=== PATIENT | male | born 1935 | race African-American/Black ===

== ENCOUNTER 2022-12-17 19:16 | Inpatient (IN) | payer OTHER ==
[2022-12-17] MEDS ORDERED: SODIUM CHLORIDE 2,000 ML IV STA (19:37)
[2022-12-17 20:07] LABS: VENOUS BASE EXCESS -3.8 mmol/L (-2-2); VENOUS O2 SATURATION 68.8 % (70-80); VENOUS PH 7.349 (7.310-7.410)
[2022-12-17] MEDS ORDERED: PIPERACILLIN/TAZOB 3.375 GM 3.375 GM in DEXTROSE 5%-WATER - 50 ML IVPB ONE (20:07)
[2022-12-17] MEDS ORDERED: VANCOMYCIN 1,000 MG in DEXTROSE 5%-WATER - 250 ML IVPB ONE (20:07)
[2022-12-17] MEDS ORDERED: VANCOMYCIN 1 GRAM (PRE-DOCKED) 1,000 MG/250 ML BAG IVPB ONE (20:14)
[2022-12-17] MEDS ORDERED: PIPERACILLIN/TAZOB 3.375 GM 3.375 GM/50 ML BAG IVPB ONE (20:15)
[2022-12-17 20:41] LABS: POTASSIUM 4.7 mmol/L (3.5-5.1)
[2022-12-17 20:42] LABS: CALCIUM 8.5 mg/dL (8.5-10.1)
[2022-12-17 20:43] LABS: ALBUMIN 1.8 g/dl (3.4-5.0); BLOOD UREA NITROGEN 63.3 mg/dL (7-18)
[2022-12-17 20:47] LABS: BILIRUBIN,TOTAL 0.4 mg/dL (0.2-1); CREATININE 1.6 mg/dL (0.55-1.3); TOT PROT 7.3 g/dl (6.4-8.2)
[2022-12-17 20:47] LABS: BASO % 0.5 % (0-2.0); EOS % 0.9 % (0-4.5); HEMATOCRIT 24.1 % (35.4-49); HEMOGLOBIN 7.8 GM/dL (11.7-16.9); LYMPH % 3.3 % (8-40); MCH 26.6 pg (25.7-33.7); MCHC 32.3 g/dl (32.0-35.9); MEAN CELL VOLUME 82.5 fl (80-96); MEAN PLT VOLUME 6.9 fl (7.5-11.1); MONO % 8.6 % (3.8-10.2); NEUT % 86.7 % (42.8-82.8); PLATELET COUNT 443 10^3/uL (134-434); RBC 2.92 M/mm3 (4.00-5.60); RDW 18.1 % (11.9-15.9); WHITE BLOOD COUNT 17.4 K/mm3 (4.0-10.0)
[2022-12-17] MEDS ORDERED: ACETAMINOPHEN 1000 MG/100 ML BAG IVPB ONE (21:14)
[2022-12-17 21:21] LABS: LACTIC ACID 2.4 mmol/L (0.4-2.0)
[2022-12-17 21:21] LABS: INR 1.36 (0.83-1.09); PROTHROMBIN TIME (PATIENT) 15.7 SEC (9.7-13.0)
[2022-12-17] MEDS ORDERED: ACETAMINOPHEN INJECTION 100 ML IVPB ONE (21:30)
[2022-12-17] MEDS ORDERED: SODIUM CHLORIDE 1,000 ML IV STA ×2 (22:27→22:31)
[2022-12-17 23:20] LABS: EPI CELLS 1 /uL (0-25.1); HYALINE CASTS 2 /uL (0-3.1); PH,URINE 8.5 (5.0-8.0); URINE APPEARANCE CLOUDY; URINE BACTERIA 6938 /uL (0-1359); URINE BILIRUBIN NEGATIVE (NEGATIVE); URINE COLOR YELLOW; URINE GLUCOSE (UA) NEGATIVE (NEGATIVE); URINE KETONE NEGATIVE (NEGATIVE); URINE LEUK ESTERASE 3+ (NEGATIVE); URINE NITRITE NEGATIVE (NEGATIVE); URINE PROTEIN 1+ (NEGATIVE); URINE RBC 31 /uL (0-23.9); URINE WBC 723 /uL (0-25.8)
[2022-12-18 04:09] VITALS: BMI 18.6
[2022-12-18] MEDS: PIPERACILLIN/TAZOB 2.25 GM 2.25 GM in DEXTROSE 5%-WATER - 50 ML IVPB SCH ×4 (04:57→20:58)
[2022-12-18] MEDS ORDERED: HYDROmorphone HCL 2 MG TABLET PO SCH (06:00)
[2022-12-18] MEDS ORDERED: [UNRECOGNIZED DRUG - OTHER] PEG SCH (06:00)
[2022-12-18] MEDS ORDERED: morphine SULFATE 10 MG/5 ML UNIT-DOSE CUP PO SCH (06:00)
[2022-12-18] MEDS ORDERED: HYDROMORPHONE HCL PEG SCH (06:00)
[2022-12-18] MEDS ORDERED: HEPARIN NA (PORCINE) 5,000 UNITS/ML 1ML VIAL SQ SCH ×2 (06:00)
[2022-12-18] MEDS ORDERED: ACETAMINOPHEN 1000 MG/100 ML BAG IVPB PRN (07:16)
[2022-12-18] MEDS ORDERED: ACETAMINOPHEN 325 MG TABLET (FP) PO SCH (10:00)
[2022-12-18] MEDS ORDERED: ASPIRIN 81 MG CHEWABLE TABLETS PEG SCH (10:00)
[2022-12-18] MEDS: FOLIC ACID 1 MG TABLET (FP) PO SCH (10:47)
[2022-12-18] MEDS: ASCORBIC ACID 500 MG TABLET (FP) PO SCH ×2 (10:48→22:09)
[2022-12-18] MEDS: SENNOSIDES 8.6MG TABLET (FP) PO SCH ×2 (10:48→22:09)
[2022-12-18] MEDS: ZINC SULFATE 220 MG CAPSULE (FP) PO SCH (10:48)
[2022-12-18] MEDS: AMANTADINE HCL 100 MG TABLET PO SCH (10:48)
[2022-12-18] MEDS: CLOPIDOGREL BISULFATE 75 MG TABLET (FP) PO SCH (10:48)
[2022-12-18] MEDS: COLLAGENASE CLOSTRIDIUM HIST. 30 GRAMS TUBE TP SCH (10:48)
[2022-12-18 10:55] LABS: BASO % 0.6 % (0-2.0); HEMATOCRIT 22.9 % (35.4-49); HEMOGLOBIN 7.5 GM/dL (11.7-16.9); LYMPH % 4.4 % (8-40); MCH 26.8 pg (25.7-33.7); MCHC 32.6 g/dl (32.0-35.9); MEAN CELL VOLUME 82.2 fl (80-96); MEAN PLT VOLUME 7.2 fl (7.5-11.1); MONO % 6.9 % (3.8-10.2); NEUT % 85.1 % (42.8-82.8); PLATELET COUNT 413 10^3/uL (134-434); RBC 2.79 M/mm3 (4.00-5.60); WHITE BLOOD COUNT 19.2 K/mm3 (4.0-10.0)
[2022-12-18 11:19] LABS: POTASSIUM 4.1 mmol/L (3.5-5.1)
[2022-12-18 11:31] LABS: ALBUMIN 1.6 g/dl (3.4-5.0); BLOOD UREA NITROGEN 56.6 mg/dL (7-18); CALCIUM 7.7 mg/dL (8.5-10.1); MAGNESIUM 1.9 mg/dL (1.8-2.4)
[2022-12-18 11:34] LABS: CREATININE 1.3 mg/dL (0.55-1.3)
[2022-12-18 11:36] LABS: BILIRUBIN,TOTAL 0.7 mg/dL (0.2-1); TOT PROT 6.2 g/dl (6.4-8.2)
[2022-12-18 17:31] LABS: PHOSPHOROUS 3.8 mg/dL (2.5-4.9)
[2022-12-18] MEDS: TAMSULOSIN HCL 0.4 MG CAP PO SCH (22:09)
[2022-12-18] MEDS: DONEPEZIL HCL 5 MG TABLET (FP) PO SCH (22:09)
[2022-12-19] MEDS: PIPERACILLIN/TAZOB 2.25 GM 2.25 GM in DEXTROSE 5%-WATER - 50 ML IVPB SCH ×6 (03:03→20:25)
[2022-12-19 09:18] LABS: BASO % 0.8 % (0-2.0); HEMATOCRIT 20.4 % (35.4-49); MCH 27.1 pg (25.7-33.7); MCHC 33.4 g/dl (32.0-35.9); MEAN CELL VOLUME 81.3 fl (80-96); MONO % 8.6 % (3.8-10.2); NEUT % 76.6 % (42.8-82.8); PLATELET COUNT 412 10^3/uL (134-434); RBC 2.51 M/mm3 (4.00-5.60); RDW 18.5 % (11.9-15.9); WHITE BLOOD COUNT 12.8 K/mm3 (4.0-10.0)
[2022-12-19 09:29] LABS: HEMOGLOBIN 6.8 GM/dL (11.7-16.9)
[2022-12-19] MEDS: CLOPIDOGREL BISULFATE 75 MG TABLET (FP) PO SCH (09:54)
[2022-12-19] MEDS: FOLIC ACID 1 MG TABLET (FP) PO SCH (09:55)
[2022-12-19] MEDS: ZINC SULFATE 220 MG CAPSULE (FP) PO SCH (09:55)
[2022-12-19] MEDS: SENNOSIDES 8.6MG TABLET (FP) PO SCH ×2 (09:55→21:01)
[2022-12-19] MEDS: ASCORBIC ACID 500 MG TABLET (FP) PO SCH ×2 (09:55→21:01)
[2022-12-19 10:31] LABS: POTASSIUM 4.2 mmol/L (3.5-5.1)
[2022-12-19 10:33] LABS: BLOOD UREA NITROGEN 46.7 mg/dL (7-18)
[2022-12-19 10:34] LABS: ALBUMIN 1.6 g/dl (3.4-5.0); CALCIUM 7.9 mg/dL (8.5-10.1)
[2022-12-19 10:37] LABS: CREATININE 1.2 mg/dL (0.55-1.3); PHOSPHOROUS 3.8 mg/dL (2.5-4.9)
[2022-12-19 10:38] LABS: TOT PROT 6.5 g/dl (6.4-8.2)
[2022-12-19 10:39] LABS: BILIRUBIN,TOTAL 0.4 mg/dL (0.2-1)
[2022-12-19 10:40] LABS: N-TERMINAL BNP 5010.4 pg/ml (5-450)
[2022-12-19] MEDS: COLLAGENASE CLOSTRIDIUM HIST. 30 GRAMS TUBE TP SCH (11:57)
[2022-12-19 12:14] LABS: RETICULOCYTES 1.37 % (0.5-1.5)
[2022-12-19] MEDS: TAMSULOSIN HCL 0.4 MG CAP PO SCH (21:01)
[2022-12-19] MEDS: DONEPEZIL HCL 5 MG TABLET (FP) PO SCH (21:01)
[2022-12-20] MEDS: PIPERACILLIN/TAZOB 2.25 GM 2.25 GM in DEXTROSE 5%-WATER - 50 ML IVPB SCH ×4 (04:08→21:21)
[2022-12-20] MEDS: ASCORBIC ACID 500 MG TABLET (FP) PO SCH ×2 (10:18→21:21)
[2022-12-20] MEDS: CLOPIDOGREL BISULFATE 75 MG TABLET (FP) PO SCH (10:18)
[2022-12-20] MEDS: ZINC SULFATE 220 MG CAPSULE (FP) PO SCH (10:18)
[2022-12-20] MEDS: SENNOSIDES 8.6MG TABLET (FP) PO SCH ×2 (10:18→21:21)
[2022-12-20] MEDS: FOLIC ACID 1 MG TABLET (FP) PO SCH (10:18)
[2022-12-20] MEDS: AMANTADINE HCL 100 MG TABLET PO SCH (10:18)
[2022-12-20] MEDS: COLLAGENASE CLOSTRIDIUM HIST. 30 GRAMS TUBE TP SCH (10:19)
[2022-12-20 10:23] LABS: BASO % 1.2 % (0-2.0); EOS % 9.4 % (0-4.5); HEMATOCRIT 26.2 % (35.4-49); HEMOGLOBIN 8.8 GM/dL (11.7-16.9); MCH 27.8 pg (25.7-33.7); MCHC 33.6 g/dl (32.0-35.9); MEAN CELL VOLUME 82.7 fl (80-96); MONO % 10.6 % (3.8-10.2); NEUT % 67.8 % (42.8-82.8); PLATELET COUNT 439 10^3/uL (134-434); RBC 3.17 M/mm3 (4.00-5.60); RDW 17.6 % (11.9-15.9); WHITE BLOOD COUNT 9.5 K/mm3 (4.0-10.0)
[2022-12-20 10:51] LABS: POTASSIUM 4.1 mmol/L (3.5-5.1)
[2022-12-20 10:53] LABS: CALCIUM 8.3 mg/dL (8.5-10.1)
[2022-12-20 10:54] LABS: BLOOD UREA NITROGEN 39.3 mg/dL (7-18)
[2022-12-20 10:57] LABS: CREATININE 1.2 mg/dL (0.55-1.3); PHOSPHOROUS 3.9 mg/dL (2.5-4.9)
[2022-12-20] MEDS ORDERED: ACETAMINOPHEN 1000 MG/100 ML BAG IVPB ONE (19:30)
[2022-12-20] MEDS ORDERED: ACETAMINOPHEN 1000 MG/100 ML BAG IVPB PRN (19:35)
[2022-12-20] MEDS: DONEPEZIL HCL 5 MG TABLET (FP) PO SCH (21:21)
[2022-12-20] MEDS: TAMSULOSIN HCL 0.4 MG CAP PO SCH (21:21)
[2022-12-21] MEDS: PIPERACILLIN/TAZOB 2.25 GM 2.25 GM in DEXTROSE 5%-WATER - 50 ML IVPB SCH ×4 (02:06→20:38)
[2022-12-21 10:03] LABS: BASO % 1.3 % (0-2.0); EOS % 12.8 % (0-4.5); HEMATOCRIT 25.6 % (35.4-49); HEMOGLOBIN 8.4 GM/dL (11.7-16.9); LYMPH % 13.3 % (8-40); MCH 27.2 pg (25.7-33.7); MCHC 32.9 g/dl (32.0-35.9); MEAN CELL VOLUME 82.6 fl (80-96); MEAN PLT VOLUME 6.8 fl (7.5-11.1); MONO % 10.3 % (3.8-10.2); NEUT % 62.3 % (42.8-82.8); PLATELET COUNT 433 10^3/uL (134-434); RBC 3.11 M/mm3 (4.00-5.60); RDW 17.6 % (11.9-15.9); WHITE BLOOD COUNT 7.6 K/mm3 (4.0-10.0)
[2022-12-21 10:16] LABS: POTASSIUM 4.1 mmol/L (3.5-5.1)
[2022-12-21 10:17] LABS: CALCIUM 8.4 mg/dL (8.5-10.1)
[2022-12-21 10:18] LABS: BLOOD UREA NITROGEN 31.4 mg/dL (7-18); MAGNESIUM 1.8 mg/dL (1.8-2.4)
[2022-12-21 10:21] LABS: CREATININE 1.1 mg/dL (0.55-1.3); PHOSPHOROUS 3.3 mg/dL (2.5-4.9)
[2022-12-21] MEDS: CLOPIDOGREL BISULFATE 75 MG TABLET (FP) PO SCH (10:48)
[2022-12-21] MEDS: FOLIC ACID 1 MG TABLET (FP) PO SCH (10:48)
[2022-12-21] MEDS: ASCORBIC ACID 500 MG TABLET (FP) PO SCH ×2 (10:48→22:11)
[2022-12-21] MEDS: ZINC SULFATE 220 MG CAPSULE (FP) PO SCH (10:48)
[2022-12-21] MEDS: SENNOSIDES 8.6MG TABLET (FP) PO SCH (10:48)
[2022-12-21] MEDS: COLLAGENASE CLOSTRIDIUM HIST. 30 GRAMS TUBE TP SCH (12:15)
[2022-12-21] MEDS ORDERED: PIPERACILLIN/TAZOBACTAM 2.25 GM VIAL IVPB ONE ×2 (14:22→20:23)
[2022-12-21] MEDS: MULTIVIT-MINERALS ORAL LIQUID PO SCH (15:06)
[2022-12-21] MEDS: DONEPEZIL HCL 5 MG TABLET (FP) PO SCH (22:11)
[2022-12-21] MEDS: TAMSULOSIN HCL 0.4 MG CAP PO SCH (23:43)
[2022-12-22] MEDS: PIPERACILLIN/TAZOB 2.25 GM 2.25 GM in DEXTROSE 5%-WATER - 50 ML IVPB SCH ×4 (02:33→21:28)
[2022-12-22 09:31] LABS: HEMATOCRIT 25.6 % (35.4-49); HEMOGLOBIN 8.4 GM/dL (11.7-16.9); LYMPH % 14.7 % (8-40); MCH 27.4 pg (25.7-33.7); MCHC 32.8 g/dl (32.0-35.9); MEAN CELL VOLUME 83.4 fl (80-96); MEAN PLT VOLUME 6.7 fl (7.5-11.1); MONO % 10.5 % (3.8-10.2); NEUT % 62.8 % (42.8-82.8); PLATELET COUNT 405 10^3/uL (134-434); RBC 3.07 M/mm3 (4.00-5.60); RDW 17.3 % (11.9-15.9)
[2022-12-22 10:07] LABS: CALCIUM 8.2 mg/dL (8.5-10.1)
[2022-12-22 10:08] LABS: BLOOD UREA NITROGEN 25.6 mg/dL (7-18); MAGNESIUM 1.7 mg/dL (1.8-2.4)
[2022-12-22 10:11] LABS: PHOSPHOROUS 2.7 mg/dL (2.5-4.9)
[2022-12-22] MEDS: ASCORBIC ACID 500 MG TABLET (FP) PO SCH (10:25)
[2022-12-22] MEDS: MULTIVIT-MINERALS ORAL LIQUID PO SCH (10:25)
[2022-12-22] MEDS: AMANTADINE HCL 100 MG TABLET PO SCH (10:25)
[2022-12-22] MEDS: FOLIC ACID 1 MG TABLET (FP) PO SCH (10:25)
[2022-12-22] MEDS: ZINC SULFATE 220 MG CAPSULE (FP) PO SCH (10:25)
[2022-12-22] MEDS: CLOPIDOGREL BISULFATE 75 MG TABLET (FP) PO SCH (10:25)
[2022-12-22] MEDS: COLLAGENASE CLOSTRIDIUM HIST. 30 GRAMS TUBE TP SCH (10:26)
[2022-12-22] MEDS ORDERED: MAGNESIUM 2GM/50ML STERILE WATER IVPB IVPB ONE (17:18)
[2022-12-22] MEDS: DONEPEZIL HCL 5 MG TABLET (FP) GT SCH (21:28)
[2022-12-22] MEDS: ASCORBIC ACID 500 MG/5 ML UNIT DOSE CUP GT SCH (21:28)
[2022-12-23] MEDS: PIPERACILLIN/TAZOB 2.25 GM 2.25 GM in DEXTROSE 5%-WATER - 50 ML IVPB SCH ×3 (02:09→15:30)
[2022-12-23] MEDS: MULTIVIT-MINERALS ORAL LIQUID GT SCH (09:32)
[2022-12-23] MEDS: ASCORBIC ACID 500 MG/5 ML UNIT DOSE CUP GT SCH ×2 (09:32→21:17)
[2022-12-23] MEDS: CLOPIDOGREL BISULFATE 75 MG TABLET (FP) GT SCH (09:33)
[2022-12-23] MEDS: FOLIC ACID 1 MG TABLET (FP) GT SCH (09:33)
[2022-12-23] MEDS: ZINC SULFATE 220 MG CAPSULE (FP) GT SCH (09:33)
[2022-12-23] MEDS: DOXAZOSIN MESYLATE 1 MG TABLET GT SCH (09:33)
[2022-12-23] MEDS: COLLAGENASE CLOSTRIDIUM HIST. 30 GRAMS TUBE TP SCH (09:34)
[2022-12-23 10:10] LABS: HEMATOCRIT 27.1 % (35.4-49); HEMOGLOBIN 8.8 GM/dL (11.7-16.9); MCH 27.2 pg (25.7-33.7); MCHC 32.6 g/dl (32.0-35.9); MEAN CELL VOLUME 83.4 fl (80-96); MEAN PLT VOLUME 6.8 fl (7.5-11.1); PLATELET COUNT 379 10^3/uL (134-434); RBC 3.25 M/mm3 (4.00-5.60); RDW 17.4 % (11.9-15.9); WHITE BLOOD COUNT 7.8 K/mm3 (4.0-10.0)
[2022-12-23 10:11] LABS: POTASSIUM 3.9 mmol/L (3.5-5.1)
[2022-12-23 10:24] LABS: CALCIUM 8.4 mg/dL (8.5-10.1); MAGNESIUM 1.8 mg/dL (1.8-2.4)
[2022-12-23 10:25] LABS: BLOOD UREA NITROGEN 23.3 mg/dL (7-18)
[2022-12-23 10:28] LABS: CREATININE 1.1 mg/dL (0.55-1.3)
[2022-12-23 10:30] LABS: PHOSPHOROUS 2.7 mg/dL (2.5-4.9)
[2022-12-23] MEDS: HEPARIN NA (PORCINE) 5,000 UNITS/ML 1ML VIAL SQ SCH ×2 (15:30→21:17)
[2022-12-23] MEDS ORDERED: PIPERACILLIN/TAZOBACTAM 2.25 GM VIAL IVPB ONE (15:30)
[2022-12-23] MEDS: PIPERACILLIN/TAZOB 3.375 GM 3.375 GM in DEXTROSE 5%-WATER - 50 ML IVPB SCH (18:20)
[2022-12-23] MEDS: DONEPEZIL HCL 5 MG TABLET (FP) GT SCH (21:17)
[2022-12-24] MEDS: PIPERACILLIN/TAZOB 3.375 GM 3.375 GM in DEXTROSE 5%-WATER - 50 ML IVPB SCH ×3 (02:22→18:48)
[2022-12-24] MEDS: HEPARIN NA (PORCINE) 5,000 UNITS/ML 1ML VIAL SQ SCH ×3 (06:58→22:54)
[2022-12-24 09:08] LABS: HEMATOCRIT 24.7 % (35.4-49); HEMOGLOBIN 8.3 GM/dL (11.7-16.9); MCH 28.1 pg (25.7-33.7); MCHC 33.8 g/dl (32.0-35.9); MEAN CELL VOLUME 83.1 fl (80-96); MEAN PLT VOLUME 7.2 fl (7.5-11.1); PLATELET COUNT 371 10^3/uL (134-434); RBC 2.97 M/mm3 (4.00-5.60); RDW 17.3 % (11.9-15.9); WHITE BLOOD COUNT 7.4 K/mm3 (4.0-10.0)
[2022-12-24 09:32] LABS: ALBUMIN 1.7 g/dl (3.4-5.0); BLOOD UREA NITROGEN 24.4 mg/dL (7-18); CALCIUM 8.2 mg/dL (8.5-10.1)
[2022-12-24 09:35] LABS: CREATININE 1.1 mg/dL (0.55-1.3)
[2022-12-24 09:36] LABS: BILIRUBIN,TOTAL 0.4 mg/dL (0.2-1)
[2022-12-24 09:38] LABS: TOT PROT 6.6 g/dl (6.4-8.2)
[2022-12-24] MEDS: ASCORBIC ACID 500 MG/5 ML UNIT DOSE CUP GT SCH ×2 (10:28→22:55)
[2022-12-24] MEDS: ZINC SULFATE 220 MG CAPSULE (FP) GT SCH (10:28)
[2022-12-24] MEDS: MULTIVIT-MINERALS ORAL LIQUID GT SCH (10:28)
[2022-12-24] MEDS: CLOPIDOGREL BISULFATE 75 MG TABLET (FP) GT SCH (10:28)
[2022-12-24] MEDS: DOXAZOSIN MESYLATE 1 MG TABLET GT SCH (10:28)
[2022-12-24] MEDS: FOLIC ACID 1 MG TABLET (FP) GT SCH (10:28)
[2022-12-24] MEDS: COLLAGENASE CLOSTRIDIUM HIST. 30 GRAMS TUBE TP SCH (10:29)
[2022-12-24] MEDS: AMANTADINE HCL 100MG/10 ML UNIT DOSE CUPS GT SCH (10:29)
[2022-12-24] MEDS: DONEPEZIL HCL 5 MG TABLET (FP) GT SCH (22:55)
[2022-12-25] MEDS: PIPERACILLIN/TAZOB 3.375 GM 3.375 GM in DEXTROSE 5%-WATER - 50 ML IVPB SCH ×3 (03:12→17:38)
[2022-12-25] MEDS: HEPARIN NA (PORCINE) 5,000 UNITS/ML 1ML VIAL SQ SCH ×3 (06:53→22:28)
[2022-12-25] MEDS: ZINC SULFATE 220 MG CAPSULE (FP) GT SCH (10:05)
[2022-12-25] MEDS: ASCORBIC ACID 500 MG/5 ML UNIT DOSE CUP GT SCH ×2 (10:05→22:27)
[2022-12-25] MEDS: FOLIC ACID 1 MG TABLET (FP) GT SCH (10:05)
[2022-12-25] MEDS: CLOPIDOGREL BISULFATE 75 MG TABLET (FP) GT SCH (10:05)
[2022-12-25] MEDS: DOXAZOSIN MESYLATE 1 MG TABLET GT SCH (10:06)
[2022-12-25] MEDS: MULTIVIT-MINERALS ORAL LIQUID GT SCH (10:06)
[2022-12-25] MEDS: COLLAGENASE CLOSTRIDIUM HIST. 30 GRAMS TUBE TP SCH (10:06)
[2022-12-25] MEDS: DONEPEZIL HCL 5 MG TABLET (FP) GT SCH (22:28)
[2022-12-26] MEDS: PIPERACILLIN/TAZOB 3.375 GM 3.375 GM in DEXTROSE 5%-WATER - 50 ML IVPB SCH ×3 (01:58→17:43)
[2022-12-26] MEDS: HEPARIN NA (PORCINE) 5,000 UNITS/ML 1ML VIAL SQ SCH ×3 (05:57→21:50)
[2022-12-26] MEDS: FOLIC ACID 1 MG TABLET (FP) GT SCH (09:30)
[2022-12-26] MEDS: MULTIVIT-MINERALS ORAL LIQUID GT SCH (09:30)
[2022-12-26] MEDS: ZINC SULFATE 220 MG CAPSULE (FP) GT SCH (09:30)
[2022-12-26] MEDS: ASCORBIC ACID 500 MG/5 ML UNIT DOSE CUP GT SCH ×2 (09:30→21:50)
[2022-12-26] MEDS: AMANTADINE HCL 100MG/10 ML UNIT DOSE CUPS GT SCH (09:30)
[2022-12-26] MEDS: DOXAZOSIN MESYLATE 1 MG TABLET GT SCH (09:30)
[2022-12-26] MEDS: CLOPIDOGREL BISULFATE 75 MG TABLET (FP) GT SCH (09:30)
[2022-12-26] MEDS: COLLAGENASE CLOSTRIDIUM HIST. 30 GRAMS TUBE TP SCH (09:31)
[2022-12-26 10:50] LABS: BASO % 0.6 % (0-2.0); EOS % 7.6 % (0-4.5); HEMATOCRIT 26.2 % (35.4-49); HEMOGLOBIN 9.1 GM/dL (11.7-16.9); LYMPH % 11.7 % (8-40); MCH 28.6 pg (25.7-33.7); MCHC 34.7 g/dl (32.0-35.9); MEAN CELL VOLUME 82.6 fl (80-96); MEAN PLT VOLUME 7.6 fl (7.5-11.1); MONO % 7.8 % (3.8-10.2); NEUT % 72.3 % (42.8-82.8); PLATELET COUNT 369 10^3/uL (134-434); RBC 3.18 M/mm3 (4.00-5.60); RDW 17.2 % (11.9-15.9); WHITE BLOOD COUNT 8.6 K/mm3 (4.0-10.0)
[2022-12-26 11:10] LABS: POTASSIUM 4.1 mmol/L (3.5-5.1)
[2022-12-26 11:13] LABS: ALBUMIN 1.8 g/dl (3.4-5.0); BLOOD UREA NITROGEN 24.7 mg/dL (7-18); CALCIUM 8.5 mg/dL (8.5-10.1); MAGNESIUM 1.7 mg/dL (1.8-2.4)
[2022-12-26 11:16] LABS: PHOSPHOROUS 2.7 mg/dL (2.5-4.9)
[2022-12-26 11:17] LABS: BILIRUBIN,TOTAL 0.5 mg/dL (0.2-1)
[2022-12-26 11:18] LABS: TOT PROT 6.9 g/dl (6.4-8.2)
[2022-12-26] MEDS ORDERED: MAGNESIUM SULF 50% (8.12 MEQ/2 ML-1 GM VIAL) IVPB ONE (12:13)
[2022-12-26] MEDS: DONEPEZIL HCL 5 MG TABLET (FP) GT SCH (21:50)
[2022-12-27] MEDS: PIPERACILLIN/TAZOB 3.375 GM 3.375 GM in DEXTROSE 5%-WATER - 50 ML IVPB SCH ×2 (01:25→10:36)
[2022-12-27] MEDS: HEPARIN NA (PORCINE) 5,000 UNITS/ML 1ML VIAL SQ SCH ×3 (06:34→21:23)
[2022-12-27 09:23] LABS: BASO % 0.8 % (0-2.0); EOS % 5.8 % (0-4.5); HEMATOCRIT 25.8 % (35.4-49); HEMOGLOBIN 8.5 GM/dL (11.7-16.9); LYMPH % 11.7 % (8-40); MCH 27.8 pg (25.7-33.7); MCHC 33.1 g/dl (32.0-35.9); MEAN CELL VOLUME 83.8 fl (80-96); MEAN PLT VOLUME 7.7 fl (7.5-11.1); MONO % 7.4 % (3.8-10.2); NEUT % 74.3 % (42.8-82.8); PLATELET COUNT 369 10^3/uL (134-434); RBC 3.08 M/mm3 (4.00-5.60); RDW 17.5 % (11.9-15.9); WHITE BLOOD COUNT 9.2 K/mm3 (4.0-10.0)
[2022-12-27 09:56] LABS: POTASSIUM 3.8 mmol/L (3.5-5.1)
[2022-12-27 10:20] LABS: ALBUMIN 1.6 g/dl (3.4-5.0); CALCIUM 8.3 mg/dL (8.5-10.1)
[2022-12-27 10:21] LABS: BLOOD UREA NITROGEN 30.1 mg/dL (7-18)
[2022-12-27 10:23] LABS: PHOSPHOROUS 2.6 mg/dL (2.5-4.9)
[2022-12-27 10:24] LABS: CREATININE 1.1 mg/dL (0.55-1.3)
[2022-12-27 10:25] LABS: BILIRUBIN,TOTAL 0.4 mg/dL (0.2-1); TOT PROT 6.5 g/dl (6.4-8.2)
[2022-12-27] MEDS: ZINC SULFATE 220 MG CAPSULE (FP) GT SCH (10:37)
[2022-12-27] MEDS: DOXAZOSIN MESYLATE 1 MG TABLET GT SCH (10:37)
[2022-12-27] MEDS: MULTIVIT-MINERALS ORAL LIQUID GT SCH (10:37)
[2022-12-27] MEDS: CLOPIDOGREL BISULFATE 75 MG TABLET (FP) GT SCH (10:37)
[2022-12-27] MEDS: ASCORBIC ACID 500 MG/5 ML UNIT DOSE CUP GT SCH ×2 (10:37→21:23)
[2022-12-27] MEDS: FOLIC ACID 1 MG TABLET (FP) GT SCH (10:37)
[2022-12-27] MEDS: COLLAGENASE CLOSTRIDIUM HIST. 30 GRAMS TUBE TP SCH (14:33)
[2022-12-27] MEDS: DONEPEZIL HCL 5 MG TABLET (FP) GT SCH (21:23)
[2022-12-28] MEDS: HEPARIN NA (PORCINE) 5,000 UNITS/ML 1ML VIAL SQ SCH ×3 (05:18→22:10)
[2022-12-28] MEDS: COLLAGENASE CLOSTRIDIUM HIST. 30 GRAMS TUBE TP SCH (10:00)
[2022-12-28] MEDS: FOLIC ACID 1 MG TABLET (FP) GT SCH (10:13)
[2022-12-28] MEDS: DOXAZOSIN MESYLATE 1 MG TABLET GT SCH (10:13)
[2022-12-28] MEDS: MULTIVIT-MINERALS ORAL LIQUID GT SCH (10:13)
[2022-12-28] MEDS: ZINC SULFATE 220 MG CAPSULE (FP) GT SCH (10:13)
[2022-12-28] MEDS: ASCORBIC ACID 500 MG/5 ML UNIT DOSE CUP GT SCH ×2 (10:14→22:10)
[2022-12-28] MEDS: CLOPIDOGREL BISULFATE 75 MG TABLET (FP) GT SCH (10:14)
[2022-12-28] MEDS: AMANTADINE HCL 100MG/10 ML UNIT DOSE CUPS GT SCH (10:14)
[2022-12-28] MEDS ORDERED: guaiFENesin 200 MG/10 ML 10 ML UNIT-DOSE CUPS PO ONE (18:42)
[2022-12-28] MEDS: DONEPEZIL HCL 5 MG TABLET (FP) GT SCH (22:10)
[2022-12-29] MEDS: HEPARIN NA (PORCINE) 5,000 UNITS/ML 1ML VIAL SQ SCH ×3 (06:25→22:01)
[2022-12-29 08:41] LABS: HEMATOCRIT 25.2 % (35.4-49); HEMOGLOBIN 8.3 GM/dL (11.7-16.9); MCH 27.7 pg (25.7-33.7); MCHC 32.8 g/dl (32.0-35.9); MEAN CELL VOLUME 84.3 fl (80-96); MEAN PLT VOLUME 7.8 fl (7.5-11.1); PLATELET COUNT 406 10^3/uL (134-434); RBC 2.99 M/mm3 (4.00-5.60); RDW 17.6 % (11.9-15.9); WHITE BLOOD COUNT 7.7 K/mm3 (4.0-10.0)
[2022-12-29 09:33] LABS: ALBUMIN 1.7 g/dl (3.4-5.0); BILIRUBIN,TOTAL 0.2 mg/dL (0.2-1); BLOOD UREA NITROGEN 34.5 mg/dL (7-18); CALCIUM 8.3 mg/dL (8.5-10.1); PHOSPHOROUS 2.8 mg/dL (2.5-4.9); TOT PROT 6.7 g/dl (6.4-8.2)
[2022-12-29] MEDS: FOLIC ACID 1 MG TABLET (FP) GT SCH (10:24)
[2022-12-29] MEDS: CLOPIDOGREL BISULFATE 75 MG TABLET (FP) GT SCH (10:24)
[2022-12-29] MEDS: ZINC SULFATE 220 MG CAPSULE (FP) GT SCH (10:24)
[2022-12-29] MEDS: MULTIVIT-MINERALS ORAL LIQUID GT SCH (10:24)
[2022-12-29] MEDS: DOXAZOSIN MESYLATE 1 MG TABLET GT SCH (10:24)
[2022-12-29] MEDS: ASCORBIC ACID 500 MG/5 ML UNIT DOSE CUP GT SCH ×2 (10:25→22:01)
[2022-12-29] MEDS: COLLAGENASE CLOSTRIDIUM HIST. 30 GRAMS TUBE TP SCH (12:35)
[2022-12-29] MEDS: DONEPEZIL HCL 5 MG TABLET (FP) GT SCH (22:00)
[2022-12-30] MEDS: HEPARIN NA (PORCINE) 5,000 UNITS/ML 1ML VIAL SQ SCH (06:18)
[2022-12-30 08:03] LABS: HEMATOCRIT 23.9 % (35.4-49); HEMOGLOBIN 7.8 GM/dL (11.7-16.9); MCH 27.4 pg (25.7-33.7); MCHC 32.7 g/dl (32.0-35.9); MEAN CELL VOLUME 83.7 fl (80-96); MEAN PLT VOLUME 8.1 fl (7.5-11.1); PLATELET COUNT 420 10^3/uL (134-434); RBC 2.86 M/mm3 (4.00-5.60); RDW 17.7 % (11.9-15.9); WHITE BLOOD COUNT 8.8 K/mm3 (4.0-10.0)
[2022-12-30 08:24] LABS: POTASSIUM 4.1 mmol/L (3.5-5.1)
[2022-12-30 08:33] LABS: CALCIUM 8.3 mg/dL (8.5-10.1)
[2022-12-30 08:34] LABS: ALBUMIN 1.7 g/dl (3.4-5.0); BLOOD UREA NITROGEN 34.9 mg/dL (7-18); MAGNESIUM 1.9 mg/dL (1.8-2.4)
[2022-12-30 08:37] LABS: CREATININE 0.9 mg/dL (0.55-1.3); PHOSPHOROUS 2.9 mg/dL (2.5-4.9)
[2022-12-30 08:39] LABS: TOT PROT 6.7 g/dl (6.4-8.2)
[2022-12-30 08:40] LABS: BILIRUBIN,TOTAL 0.3 mg/dL (0.2-1)
[2022-12-30] MEDS: DOXAZOSIN MESYLATE 1 MG TABLET GT SCH (09:49)
[2022-12-30] MEDS: CLOPIDOGREL BISULFATE 75 MG TABLET (FP) GT SCH (09:49)
[2022-12-30] MEDS: ASCORBIC ACID 500 MG/5 ML UNIT DOSE CUP GT SCH ×2 (09:49→21:11)
[2022-12-30] MEDS: ZINC SULFATE 220 MG CAPSULE (FP) GT SCH (09:49)
[2022-12-30] MEDS: MULTIVIT-MINERALS ORAL LIQUID GT SCH (09:49)
[2022-12-30] MEDS: FOLIC ACID 1 MG TABLET (FP) GT SCH (09:49)
[2022-12-30] MEDS: COLLAGENASE CLOSTRIDIUM HIST. 30 GRAMS TUBE TP SCH (09:50)
[2022-12-30] MEDS: AMANTADINE HCL 100MG/10 ML UNIT DOSE CUPS GT SCH (09:51)
[2022-12-30] MEDS: DONEPEZIL HCL 5 MG TABLET (FP) GT SCH (21:11)
[2022-12-31] MEDS: ASCORBIC ACID 500 MG/5 ML UNIT DOSE CUP GT SCH ×2 (09:33→21:26)
[2022-12-31] MEDS: CLOPIDOGREL BISULFATE 75 MG TABLET (FP) GT SCH (09:33)
[2022-12-31] MEDS: DOXAZOSIN MESYLATE 1 MG TABLET GT SCH (09:33)
[2022-12-31] MEDS: MULTIVIT-MINERALS ORAL LIQUID GT SCH (09:33)
[2022-12-31] MEDS: FOLIC ACID 1 MG TABLET (FP) GT SCH (09:33)
[2022-12-31] MEDS: ZINC SULFATE 220 MG CAPSULE (FP) GT SCH (09:33)
[2022-12-31] MEDS: COLLAGENASE CLOSTRIDIUM HIST. 30 GRAMS TUBE TP SCH (09:36)
[2022-12-31 10:25] LABS: HEMATOCRIT 24.6 % (35.4-49); HEMOGLOBIN 8.2 GM/dL (11.7-16.9); MCHC 33.2 g/dl (32.0-35.9); MEAN CELL VOLUME 84.2 fl (80-96); PLATELET COUNT 437 10^3/uL (134-434); RBC 2.93 M/mm3 (4.00-5.60); RDW 17.3 % (11.9-15.9); WHITE BLOOD COUNT 6.6 K/mm3 (4.0-10.0)
[2022-12-31 10:41] LABS: POTASSIUM 4.1 mmol/L (3.5-5.1)
[2022-12-31 10:44] LABS: ALBUMIN 1.7 g/dl (3.4-5.0); BLOOD UREA NITROGEN 33.5 mg/dL (7-18); CALCIUM 8.5 mg/dL (8.5-10.1)
[2022-12-31 10:45] LABS: MAGNESIUM 1.9 mg/dL (1.8-2.4)
[2022-12-31 10:47] LABS: CREATININE 0.9 mg/dL (0.55-1.3)
[2022-12-31 10:48] LABS: BILIRUBIN,TOTAL 0.3 mg/dL (0.2-1); TOT PROT 6.6 g/dl (6.4-8.2)
[2022-12-31] MEDS: DONEPEZIL HCL 5 MG TABLET (FP) GT SCH (21:26)
[2023-01-01] MEDS: ASCORBIC ACID 500 MG/5 ML UNIT DOSE CUP GT SCH ×2 (09:59→21:43)
[2023-01-01] MEDS: CLOPIDOGREL BISULFATE 75 MG TABLET (FP) GT SCH (10:00)
[2023-01-01] MEDS: ZINC SULFATE 220 MG CAPSULE (FP) GT SCH (10:00)
[2023-01-01] MEDS: FOLIC ACID 1 MG TABLET (FP) GT SCH (10:00)
[2023-01-01] MEDS: AMANTADINE HCL 100MG/10 ML UNIT DOSE CUPS GT SCH (10:00)
[2023-01-01] MEDS: MULTIVIT-MINERALS ORAL LIQUID GT SCH (10:01)
[2023-01-01] MEDS: DOXAZOSIN MESYLATE 1 MG TABLET GT SCH (10:01)
[2023-01-01] MEDS: COLLAGENASE CLOSTRIDIUM HIST. 30 GRAMS TUBE TP SCH (10:09)
[2023-01-01 12:09] LABS: HEMATOCRIT 24.9 % (35.4-49); MCH 27.2 pg (25.7-33.7); MCHC 32.2 g/dl (32.0-35.9); MEAN CELL VOLUME 84.4 fl (80-96); MEAN PLT VOLUME 7.8 fl (7.5-11.1); PLATELET COUNT 446 10^3/uL (134-434); RBC 2.94 M/mm3 (4.00-5.60); RDW 17.5 % (11.9-15.9); WHITE BLOOD COUNT 5.3 K/mm3 (4.0-10.0)
[2023-01-01 12:29] LABS: ALBUMIN 1.7 g/dl (3.4-5.0); CALCIUM 8.5 mg/dL (8.5-10.1)
[2023-01-01 12:33] LABS: CREATININE 0.8 mg/dL (0.55-1.3)
[2023-01-01 12:34] LABS: BILIRUBIN,TOTAL 0.4 mg/dL (0.2-1); TOT PROT 6.6 g/dl (6.4-8.2)
[2023-01-01 14:53] VITALS: RESP 18
[2023-01-01] MEDS: DONEPEZIL HCL 5 MG TABLET (FP) GT SCH (21:43)
[2023-01-02] MEDS: ASCORBIC ACID 500 MG/5 ML UNIT DOSE CUP GT SCH (10:50)
[2023-01-02] MEDS: ZINC SULFATE 220 MG CAPSULE (FP) GT SCH (10:50)
[2023-01-02] MEDS: FOLIC ACID 1 MG TABLET (FP) GT SCH (10:50)
[2023-01-02] MEDS: MULTIVIT-MINERALS ORAL LIQUID GT SCH (10:50)
[2023-01-02] MEDS: CLOPIDOGREL BISULFATE 75 MG TABLET (FP) GT SCH (10:50)
[2023-01-02] MEDS: COLLAGENASE CLOSTRIDIUM HIST. 30 GRAMS TUBE TP SCH (10:52)
[2023-01-02] MEDS: DOXAZOSIN MESYLATE 1 MG TABLET GT SCH (10:54)
[2023-01-02 14:43] VITALS: BP 118/62; PULSE 84; TEMP 96.9
[2023-01-02] MEDS ORDERED: HYDROmorphone HCL 2 MG TABLET PO PRN (15:45)
== END 2023-01-02 19:40 | DRG 871 ==
LOC: JER 19:16 → JERBED 20:53 → J6S 12-18 03:00
PROVIDERS: ADMIT Internal Medicine; ATTEND Internal Medicine
PROC: 30233N1 Transfusion of Nonautologous Red Blood Cells into Peripheral Vein, Percutaneous Approach (ICD-10-PCS; principal; 2022-12-19)
DX: A41.9 Sepsis, unspecified organism (principal); E43 Unspecified severe protein-calorie malnutrition; J18.9 Pneumonia, unspecified organism; R53.2 Functional quadriplegia; T83.511A Infection and inflammatory reaction due to indwelling urethral catheter, initial encounter; N39.0 Urinary tract infection, site not specified; J90 Pleural effusion, not elsewhere classified; Z68.1 Body mass index [BMI] 19.9 or less, adult; E87.20 Acidosis, unspecified; R64 Cachexia; Z16.12 Extended spectrum beta lactamase (ESBL) resistance; L89.222 Pressure ulcer of left hip, stage 2; L89.212 Pressure ulcer of right hip, stage 2; Y83.9 Surgical procedure, unspecified as the cause of abnormal reaction of the patient, or of later complication, without mention of misadventure at the time of the procedure; D64.9 Anemia, unspecified; I69.320 Aphasia following cerebral infarction; N40.0 Benign prostatic hyperplasia without lower urinary tract symptoms
CPT/HCPCS: 0241U-QW; 36415; 36430; 36511; 70450-TC; 71045-TC-FY; 71250-TC; 80048; 80053; 81003; 82272; 82728; 82803; 82962; 83540; 83550; 83605; 83735; 83880; 84100; 84484; 85025; 85027; 85045; 85610; 86850; 86900; 86901; 86922; 87040; 87086; 87106; 87186; 93005; 93010; 93306-TC; 97161-GP; 99285-25; J1644; P9038

== ENCOUNTER 2023-02-06 13:37 | Emergency (ER) | payer OTHER ==
[2023-02-06 14:09] VITALS: BMI 29.0
[2023-02-06 15:30] LABS: BASO % 1.1 % (0-2.0); EOS % 2.1 % (0-4.5); HEMATOCRIT 23.9 % (35.4-49); HEMOGLOBIN 7.5 GM/dL (11.7-16.9); LYMPH % 13.9 % (8-40); MCH 26.6 pg (25.7-33.7); MCHC 31.4 g/dl (32.0-35.9); MEAN CELL VOLUME 84.7 fl (80-96); MEAN PLT VOLUME 7.5 fl (7.5-11.1); MONO % 15.4 % (3.8-10.2); NEUT % 67.5 % (42.8-82.8); PLATELET COUNT 615 10^3/uL (134-434); RBC 2.82 M/mm3 (4.00-5.60); RDW 16.1 % (11.9-15.9); WHITE BLOOD COUNT 10.5 K/mm3 (4.0-10.0)
[2023-02-06 15:33] LABS: EPI CELLS >36 /uL (0-25.1); HYALINE CASTS 5 /uL (0-3.1); PH,URINE 5.5 (5.0-8.0); URINE APPEARANCE CLOUDY; URINE BACTERIA 61 /uL (0-1359); URINE BILIRUBIN NEGATIVE (NEGATIVE); URINE COLOR DK YELLOW; URINE GLUCOSE (UA) NEGATIVE (NEGATIVE); URINE KETONE NEGATIVE (NEGATIVE); URINE LEUK ESTERASE 2+ (NEGATIVE); URINE NITRITE NEGATIVE (NEGATIVE); URINE PROTEIN 1+ (NEGATIVE); URINE RBC 13 /uL (0-23.9); URINE UROBILINOGEN 0.2 mg/dL (0.2-1.0); URINE WBC 152 /uL (0-25.8)
[2023-02-06 15:37] LABS: INR 1.24 (0.83-1.09); PROTHROMBIN TIME (PATIENT) 14.4 SEC (9.7-13.0)
[2023-02-06 15:38] LABS: VENOUS O2 SATURATION 76.2 % (70-80); VENOUS PCO2 47.4 mmHg (38-52); VENOUS PH 7.351 (7.310-7.410)
[2023-02-06 15:39] LABS: ACTIVATED PTT 34.3 SECONDS (25.2-36.5)
[2023-02-06 15:50] LABS: POTASSIUM 4.3 mmol/L (3.5-5.1)
[2023-02-06 15:52] LABS: CALCIUM 8.2 mg/dL (8.5-10.1)
[2023-02-06 15:53] LABS: ALBUMIN 1.5 g/dl (3.4-5.0); BLOOD UREA NITROGEN 33.3 mg/dL (7-18)
[2023-02-06 15:56] LABS: CREATININE 1.1 mg/dL (0.55-1.3)
[2023-02-06 15:57] LABS: BILIRUBIN,TOTAL 0.3 mg/dL (0.2-1); TOT PROT 6.8 g/dl (6.4-8.2)
[2023-02-06 16:46] VITALS: TEMP 97.9
[2023-02-06] MEDS ORDERED: ACETAMINOPHEN 1000 MG/100 ML BAG IVPB ONE (17:30)
[2023-02-06] MEDS ORDERED: ACETAMINOPHEN INJECTION 100 ML IVPB ONE (17:38)
[2023-02-06] MEDS ORDERED: SODIUM CHLORIDE 0.9% 500 ML INFUS.BAG IV ONE (18:48)
[2023-02-06 20:12] VITALS: BP 104/58; PULSE 90; RESP 18
== END 2023-02-06 23:07 | disposition home or self-care (01) ==
LOC: JER 13:37
PROC: 3E033NZ Introduction of Analgesics, Hypnotics, Sedatives into Peripheral Vein, Percutaneous Approach (ICD-10-PCS; principal; 2023-02-06)
DX: N50.89 Other specified disorders of the male genital organs (principal); N47.2 Paraphimosis; Z20.822 Contact with and (suspected) exposure to COVID-19
CPT/HCPCS: 0241U-QW; 36415; 71045-TC-FY; 73610-TC-RT-FY; 73630-TC-RT-FY; 80053; 81003; 82550; 82553; 82803; 83605; 84484; 85025; 85610; 85730; 86850; 86900; 86901; 87040; 87086; 93005; 93010; 99285-25